=== PATIENT | female | born 1975 | race Two or more races ===

== ENCOUNTER 2022-06-14 07:05 | Inpatient (IN) | payer MEDICAID ==
[~2022-06-14] VITALS: Ht 160 cm; Wt 107.4 kg
[2022-06-14] MEDS ORDERED: ONDANSETRON HCL 4 MG/2 ML VIAL IV ONE (07:15)
[2022-06-14] MEDS ORDERED: methylPREDNISolone SOD SUCC 125 MG/2 ML VL IV ONE (07:15)
[2022-06-14] MEDS ORDERED: SODIUM CHLORIDE 0.9% 1,000 ML IV ONE (07:15)
[2022-06-14] MEDS ORDERED: BACLOFEN 10 MG TAB PO ONE (07:15)
[2022-06-14 07:34] LABS: Basophils # (auto) 0 10 ^3/uL (0-0.2); Basophils % (auto) 0.2 % (0.0-2.0); Eosinophils # (auto) 0 10 ^3/uL (0-0.8); Hematocrit 37.1 % (36.0-46.0); Hemoglobin 12.2 g/dL (12.2-16.2); Lymphocytes # (auto) 0.6 10 ^3/uL (0.4-5.4); Monocytes # (auto) 1.2 10 ^3/uL (0-1.3)
[2022-06-14 07:35] LABS: Eosinophils % (auto) 0.1 % (0.0-7.0); Lymphocytes % (auto) 5.1 % (10.0-50.0); Mean Corpuscular Hemoglobin 26.5 pg (28.0-32.0); Mean Corpuscular Volume 80.5 fL (80.0-100.0); Monocytes % (auto) 10.2 % (0.0-12.0); Neutrophils # (auto) 10.2 10 ^3/uL (1.6-8.6); Neutrophils % (auto) 84.4 % (37.0-80.0); Red Blood Cells 4.61 10^6/uL (4.0-5.20); Red Cell Distribution Width 17.1 % (11.8-14.3); White Blood Cell 12.1 10^3/uL (4.4-10.8)
[2022-06-14 07:56] LABS: Albumin 3.7 g/dL (3.4-5.0); Calcium 8.8 mg/dL (8.5-10.1); Potassium 3.9 mmol/L (3.5-5.1)
[2022-06-14 08:00] LABS: BUN/Creatinine Ratio 16.9 (10.0-20.0); Bilirubin, Total 0.4 mg/dL (0.2-1.0); Total Protein 7.1 g/dL (6.4-8.2)
[2022-06-14] MEDS ORDERED: MORPHINE SULFATE 4 MG/ML SYR/VIAL IV ONE (08:45)
[2022-06-14] MEDS ORDERED: cefTRIAXone 1GM/50ML D5W 50 ML IV ONE (09:30)
[2022-06-14 10:00] LABS: Urine Bacteria FEW /hpf (None Seen); Urine Blood Negative /uL (Negative); Urine Specific Gravity 1.004 (1.001-1.035); Urine WBC 55 /hpf (0 - 5)
[2022-06-14] MEDS ORDERED: MORPHINE SULFATE INJ 2 MG/ml SYRG IV PRN (13:15)
[2022-06-14] MEDS ORDERED: ONDANSETRON HCL 4 MG/2 ML VIAL IV PRN (13:15)
[2022-06-14] MEDS: ENOXAPARIN SOD 40 MG/0.4 ML SYRINGE SC SCH (15:13)
[2022-06-14] MEDS: methylPREDNISolone SOD SUCC 1,000 MG in SODIUM CHL 0.9% 250 ML IV SCH (15:14)
[2022-06-14] MEDS: SODIUM CHLORIDE 0.9% 1,000 ML IV SCH ×2 (15:14→21:35)
[2022-06-14] MEDS ORDERED: LORazepam 2MG/ML-1ML VIAL IV PRN (19:45)
[2022-06-14 22:00] VITALS: BP 99/47
[2022-06-14] MEDS: DOCUSATE SOD 100 MG CAP PO PRN (22:29)
[2022-06-15] MEDS ORDERED: SENN1TAB14 PO (01:03)
[2022-06-15] MEDS ORDERED: DOCU-94 PO ×2 (01:03)
[2022-06-15] MEDS ORDERED: FERR-20 PO (01:03)
[2022-06-15] MEDS ORDERED: POLY33504 PO (01:03)
[2022-06-15] MEDS ORDERED: METR1GEL TOP (01:03)
[2022-06-15] MEDS ORDERED: NIFE10CA3 PO (01:03)
[2022-06-15] MEDS ORDERED: GABA100C9 PO (01:03)
[2022-06-15] MEDS ORDERED: BACL10TA PO (01:03)
[2022-06-15] MEDS ORDERED: TAM04C PO (01:03)
[2022-06-15 05:00] VITALS: BP 109/58
[2022-06-15] MEDS: SODIUM CHLORIDE 0.9% 1,000 ML IV SCH ×2 (05:55→14:15)
[2022-06-15 06:41] LABS: Basophils # (auto) 0 10 ^3/uL (0-0.2); Eosinophils # (auto) 0 10 ^3/uL (0-0.8); Hemoglobin 11.1 g/dL (12.2-16.2); Mean Corpuscular Hgb Conc. 33.5 g/dL (32.0-36.0)
[2022-06-15 06:45] LABS: Basophils % (auto) 0.2 % (0.0-2.0); Hematocrit 33.2 % (36.0-46.0); Lymphocytes # (auto) 0.7 10 ^3/uL (0.4-5.4); Lymphocytes % (auto) 5.5 % (10.0-50.0); Mean Corpuscular Hemoglobin 26.8 pg (28.0-32.0); Mean Corpuscular Volume 80.1 fL (80.0-100.0); Monocytes # (auto) 0.4 10 ^3/uL (0-1.3); Monocytes % (auto) 2.9 % (0.0-12.0); Neutrophils # (auto) 10.9 10 ^3/uL (1.6-8.6); Neutrophils % (auto) 91.4 % (37.0-80.0); Red Blood Cells 4.14 10^6/uL (4.0-5.20); Red Cell Distribution Width 17.5 % (11.8-14.3); White Blood Cell 11.9 10^3/uL (4.4-10.8)
[2022-06-15 06:55] LABS: Potassium 3.8 mmol/L (3.5-5.1)
[2022-06-15 07:00] LABS: Albumin 2.8 g/dL (3.4-5.0); BUN/Creatinine Ratio 17.8 (10.0-20.0); Bilirubin, Total 0.3 mg/dL (0.2-1.0); Calcium 8.6 mg/dL (8.5-10.1); Total Protein 6.3 g/dL (6.4-8.2)
[2022-06-15 08:30] VITALS: BP 110/65
[2022-06-15 08:49] VITALS: BP 110/65
[2022-06-15] MEDS: cefTRIAXone 1GM/50ML D5W 50 ML IV SCH (09:12)
[2022-06-15] MEDS: PANTOPRAZOLE 40 MG/10 ML VIAL INJ IV SCH (09:13)
[2022-06-15] MEDS: ENOXAPARIN SOD 40 MG/0.4 ML SYRINGE SC SCH (09:13)
[2022-06-15 12:54] VITALS: BP 118/62
[2022-06-15] MEDS: methylPREDNISolone SOD SUCC 1,000 MG in SODIUM CHL 0.9% 250 ML IV SCH (13:17)
[2022-06-15 16:48] VITALS: BP 105/51
[2022-06-15] MEDS: DOCUSATE SOD 100 MG CAP PO PRN (21:22)
[2022-06-15 22:00] VITALS: BP 116/51
[2022-06-16] MEDS: SODIUM CHLORIDE 0.9% 1,000 ML IV SCH ×4 (01:26→22:38)
[2022-06-16 05:00] VITALS: BP 98/52
[2022-06-16] MEDS: cefTRIAXone 1GM/50ML D5W 50 ML IV SCH (08:08)
[2022-06-16 08:10] VITALS: BP 112/48
[2022-06-16 09:00] VITALS: BP 112/48
[2022-06-16] MEDS: DOCUSATE SOD 100 MG CAP PO PRN (09:46)
[2022-06-16] MEDS: ENOXAPARIN SOD 40 MG/0.4 ML SYRINGE SC SCH (09:46)
[2022-06-16] MEDS: PANTOPRAZOLE 40 MG/10 ML VIAL INJ IV SCH (09:46)
[2022-06-16 12:58] VITALS: BP 115/38
[2022-06-16] MEDS: methylPREDNISolone SOD SUCC 1,000 MG in SODIUM CHL 0.9% 250 ML IV SCH (14:17)
[2022-06-16 17:00] VITALS: BP 120/69
[2022-06-16 22:00] VITALS: BP 112/52
[2022-06-17 05:00] VITALS: BP 129/48
[2022-06-17 07:45] VITALS: BP 140/63
[2022-06-17] MEDS: SODIUM CHLORIDE 0.9% 1,000 ML IV SCH (07:55)
[2022-06-17 08:41] VITALS: BP 140/63
[2022-06-17] MEDS: PANTOPRAZOLE 40 MG/10 ML VIAL INJ IV SCH ×2 (09:22→10:41)
[2022-06-17] MEDS: ENOXAPARIN SOD 40 MG/0.4 ML SYRINGE SC SCH (09:22)
[2022-06-17] MEDS: DOCUSATE SOD 100 MG CAP PO PRN (09:22)
[2022-06-17] MEDS: cefTRIAXone 1GM/50ML D5W 50 ML IV SCH (10:41)
[2022-06-17] MEDS ORDERED: CIPR-173 PO (11:35)
[2022-06-17 12:30] VITALS: BP 119/53
[2022-06-17 12:53] VITALS: BP 119/53
== END 2022-06-17 15:33 | disposition home or self-care (01) | DRG 43 ==
LOC: ER 07:05 → TELE 13:24 → TELE-WESTW 21:18 → WEST WING 22:26
PROVIDERS: ADMIT Nurse Practitioner Family; ATTEND Family Medicine
DX: G35 Multiple sclerosis (principal); D72.829 Elevated white blood cell count, unspecified; M51.36 Other intervertebral disc degeneration, lumbar region; B96.20 Unspecified Escherichia coli [E. coli] as the cause of diseases classified elsewhere; N30.00 Acute cystitis without hematuria; Z90.49 Acquired absence of other specified parts of digestive tract; Z83.3 Family history of diabetes mellitus; Z82.49 Family history of ischemic heart disease and other diseases of the circulatory system; Z86.73 Personal history of transient ischemic attack (TIA), and cerebral infarction without residual deficits
CPT/HCPCS: 36415; 70450; 70551; 71045; 72131; 72148; 80053; 81001; 81025; 83605; 84702; 85025; 85652; 87040; 87086; 87088; 87186; 96361; 96374; 96375; 97110; 97163; 97530; C9113; G0378; J0696; J2405